=== PATIENT | female | born 1985 | race Two or more races ===

== ENCOUNTER 2020-08-05 15:38 | Inpatient (IN) | payer OTHER ==
[~2020-08-05] VITALS: Ht 154.9 cm; Wt 72.6 kg
[2020-08-05] MEDS ORDERED: PRENATAL CAPLE1 EAC1 PO (17:52)
== END 2020-08-10 21:37 | disposition home or self-care (01) | DRG 832 ==
LOC: LDR 15:38
PROVIDERS: ADMIT Specialist; ATTEND Specialist
PROC: 4A1HXFZ Monitoring of Products of Conception, Cardiac Rhythm, External Approach (ICD-10-PCS; principal; 2020-08-05)
PROC: BY4FZZZ Ultrasonography of Third Trimester, Single Fetus (ICD-10-PCS; 2020-08-05)
PROC: BU46ZZZ Ultrasonography of Uterus (ICD-10-PCS; 2020-08-05)
DX: O24.419 Gestational diabetes mellitus in pregnancy, unspecified control (principal); E87.2 Acidosis; Z3A.29 29 weeks gestation of pregnancy; Z20.822 Contact with and (suspected) exposure to COVID-19
CPT/HCPCS: 240

== ENCOUNTER 2020-09-08 11:03 | Outpatient (CLI) | payer OTHER ==
[~2020-09-08 11:03] MED LIST: PRENATAL CAPLE1 EAC1 PO
== END 2020-09-08 11:15 | disposition home or self-care (01) ==
LOC: NST 11:03
PROVIDERS: ATTEND Specialist
DX: Z34.83 Encounter for supervision of other normal pregnancy, third trimester (principal)

== ENCOUNTER 2020-09-22 07:27 | Outpatient (CLI) | payer OTHER | END 2020-09-22 08:10 | disposition home or self-care (01) | LOC: NST 07:27 | PROVIDERS: ATTEND Specialist | DX: O24.410 Gestational diabetes mellitus in pregnancy, diet controlled (principal) ==

== ENCOUNTER 2020-09-29 07:38 | Outpatient (CLI) | payer OTHER | END 2020-09-29 08:24 | disposition home or self-care (01) | LOC: NST 07:38 | PROVIDERS: ATTEND Specialist | DX: O24.410 Gestational diabetes mellitus in pregnancy, diet controlled (principal) ==

== ENCOUNTER 2020-10-06 05:27 | Inpatient (IN) | payer OTHER ==
[~2020-10-06] VITALS: Ht 154.9 cm; Wt 81.6 kg
[2020-10-06] MEDS ORDERED: HUMULIN N100 UNIT/2 SQ (07:12)
[2020-10-06] MEDS ORDERED: NOVOLIN R100 UNIT/1 IJ (07:13)
== END 2020-10-08 14:17 | disposition home or self-care (01) | DRG 768 ==
LOC: LDR 05:27 → OB/GYN 05:27
PROVIDERS: ADMIT Specialist; ATTEND Specialist
PROC: 10E0XZZ Delivery of Products of Conception, External Approach (ICD-10-PCS; principal; 2020-10-06)
PROC: 0UQC7ZZ Repair Cervix, Via Natural or Artificial Opening (ICD-10-PCS; 2020-10-06)
PROC: 4A1HXFZ Monitoring of Products of Conception, Cardiac Rhythm, External Approach (ICD-10-PCS; 2020-10-06)
DX: O24.12 Pre-existing type 2 diabetes mellitus, in childbirth (principal); Z37.0 Single live birth; O71.3 Obstetric laceration of cervix; Z3A.38 38 weeks gestation of pregnancy; Z20.822 Contact with and (suspected) exposure to COVID-19; Z79.4 Long term (current) use of insulin

== ENCOUNTER 2024-11-10 16:54 | Emergency (ER) | payer OTHER ==
[~2024-11-10] VITALS: Ht 154.9 cm; Wt 60.3 kg
[~2024-11-10 16:54] MED LIST changes: +HUMULIN N100 UNIT/2 SQ; +NOVOLIN R100 UNIT/1 IJ
[2024-11-10] MEDS ORDERED: ZOLOFT20 MG/1 ML (17:03)
[2024-11-10] MEDS ORDERED: KETOROLAC TROMETHAMINE 15 MG VIAL IM STA (18:20)
[2024-11-10] MEDS ORDERED: DEXAMETHASONE SODIUM PHOSPHATE 4 MG/ML VIAL IM STA (18:21)
[2024-11-10] MEDS ORDERED: ORPHENADRINE CITRATE 30 MG/ML AMPUL IM STA (18:21)
[2024-11-10] MEDS ORDERED: ORPHENADRINE CITRATE 30 MG/ML AMPUL ONE (18:35)
[2024-11-10] MEDS ORDERED: KETOROLAC TROMETHAMINE 30 MG VIAL ONE (18:35)
[2024-11-10] MEDS ORDERED: DEXAMETHASONE SODIUM PHOSPHATE 4 MG/ML VIAL ONE (18:36)
[2024-11-10 19:23] LABS: BASO % 0.4 % (0.1-1.2); EOS # 0.24 (0.04-0.54); EOS % 2.6 % (0.7-7.0); HEMATOCRIT 38.6 % (34.1-44.9); HEMOGLOBIN 13.4 g/dL (11.2-15.7); LYMPH # 2.19 (1.18-3.74); LYMPH % 23.5 % (19.3-53.1); MEAN CORPUSCULAR HEMOGLOBIN 28.6 pg (25.6-32.2); MONO # 0.61 (0.24-0.82); MONO % 6.5 % (4.7-12.5); NEUT # 6.21 (1.56-6.13); NEUT % 66.7 % (34.0-71.1); PLATELET COUNT 347 K/uL (163-369); RED BLOOD COUNT 4.68 M/uL (3.93-5.22); RED CELL DISTRIBUTION WIDTH 12.2 % (11.6-14.4)
[2024-11-10 20:06] LABS: ALBUMIN 4.1 gm/dL (3.4-5.0); BILIRUBIN TOTAL 0.88 mg/dL (0.3-1.2); CALCIUM 9.5 mg/dL (8.5-10.1); CREATININE SERUM 0.76 mg/dL (0.55-1.02); GFR 85.63; POTASSIUM 3.78 mEq/L (3.5-5.1); TOTAL PROTEIN 8.1 gm/dL (6.4-8.2)
[2024-11-10] MEDS ORDERED: IBUPROFEN800 MG PO (22:55)
== END 2024-11-11 00:06 | disposition home or self-care (01) ==
LOC: ER 16:54
PROVIDERS: Preventive Medicine Public Health & General Preventive Medicine
DX: M62.830 Muscle spasm of back (principal); F41.8 Other specified anxiety disorders

== ENCOUNTER 2024-11-11 07:34 | Outpatient (CLI) | payer OTHER ==
[~2024-11-11 07:34] MED LIST changes: +IBUPROFEN800 MG PO; +ZOLOFT20 MG/1 ML
== END 2024-11-11 07:35 | disposition home or self-care (01) ==
LOC: SONOGRAMA 07:34
PROVIDERS: ATTEND Preventive Medicine Public Health & General Preventive Medicine
DX: R22.1 Localized swelling, mass and lump, neck (principal)